=== PATIENT | female | born 2005 | race Caucasian/White ===

== ENCOUNTER 2023-09-04 10:50 | Outpatient (CLI) | payer BC, SELFPAY | END 2023-09-04 10:51 | disposition home or self-care (01) | LOC: NFLDREF 09-24 10:55 | PROVIDERS: PCP Physician Assistant Medical; Referring Provider Physician Assistant Medical; Visit Provider Physician Assistant Medical | DX: Z11.3 Encounter for screening for infections with a predominantly sexual mode of transmission (principal) | CPT/HCPCS: 87491; 87591 ==